=== PATIENT | male | born 1955 | race Caucasian/White ===

== ENCOUNTER 2016-05-07 21:31 | Emergency (ER) | payer BC ==
[2016-05-07 21:46] VITALS: BP 124/98
--- NOTE | 2016-05-07 22:11 | UC ---
Lower Extremity/Ankle HPI - HPI Summary HPI Summary: 3 weeks of foot and heel pain tonight stepped wrong at work and the pain increased--- - History of Current Complaint Chief Complaint: UCLowerExtremity Stated Complaint: FOOT PAIN Time Seen by Provider: 05/07/16 21:53 Hx Obtained From: Patient Onset/Duration: Gradual Onset, Lasting Weeks - 3, Still Present Severity Initially: Moderate Severity Currently: Moderate Pain Intensity: 5 Pain Scale Used: 0-10 Numeric Aggravating Factor(s): Standing, Ambulation Alleviating Factor(s): Rest, Elevation Able to Bear Weight: Yes Related History: Other - 3 weeks of pain - Allergies/Home Medications Allergies/Adverse Reactions: Allergies Allergy/AdvReac Type Severity Reaction Status Date / Time Chocolate Allergy Rash Verified 05/07/16 21:46 Home Medications: Home Medications NK [No Home Medications Reported] 05/07/16 [History Confirmed 05/07/16] PMH/Surg Hx/FS Hx/Imm Hx Previously Healthy: Yes - Surgical History Surgical History: Yes Surgery Procedure, Year, and Place: right lower leg. Eyes - Family History Known Family History: Positive: None Family History: no reported cardiovascular issues in family lineage - Social History Occupation: Employed Full-time Lives: With Family Alcohol Use: Rare Substance Use Type: None Smoking Status (MU): Never Smoked Tobacco Review of Systems Constitutional: Negative Skin: Negative Eyes: Negative ENT: Negative Respiratory: Negative Cardiovascular: Negative Gastrointestinal: Negative Genitourinary: Negative Motor: Negative Neurovascular: Negative Musculoskeletal: Arthralgia - bottom center of foot heel to mid foot Neurological: Negative Psychological: Negative All Other Systems Reviewed And Are Negative: Yes Physical Exam Triage Information Reviewed: Yes Appearance: Well-Appearing, No Pain Distress, Obese Vital Signs: Initial Vital Signs Temp 97.8 F 05/07/16 21:41 Pulse 72 05/07/16 21:41 Resp 18 05/07/16 21:41 BP 124/98 05/07/16 21:41 Pulse Ox 96 05/07/16 21:41 Vital Signs Reviewed: Yes Eye Exam: Normal Eyes: Positive: Conjunctiva Clear ENT Exam: Normal ENT: Positive: Normal ENT inspection, Hearing grossly normal. Negative: Trismus , Muffled/hoarse voice Neck exam: Normal Neck: Positive: Supple, Nontender Respiratory Exam: Normal Respiratory: Positive: No respiratory distress, No accessory muscle use Cardiovascular Exam: Normal Cardiovascular: Positive: RRR, Pulses Normal, Brisk Capillary Refill Musculoskeletal Exam: Normal Musculoskeletal: Positive: Strength Intact, ROM Intact, No Edema Neurological Exam: Normal Neurological: Positive: Alert, Muscle Tone Normal Psychological Exam: Normal Skin Exam: Normal Lower Extremity Course/Dx - Course Course Of Treatment: cam boot, rest elevated, ibuprofen plantar exercises, follow with podiatry - Differential Dx/Diagnosis Differential Diagnosis/HQI/PQRI: Contusion, Fracture (Open), Sprain, Strain Provider Diagnoses: Plantar Fasciitis right foot Discharge - Discharge Plan Condition: Stable Disposition: HOME Patient Education Materials: Ibuprofen (By mouth), Plantar Fasciitis Exercises (GEN), Plantar Fasciitis (ED) Forms: *Work Release Referrals: Geovanny Coulter DPM [Doctor of Podiatric Medicine] - 1 Week Katharina Lopez DPM [Doctor of Podiatric Medicine] - 1 Week Pj Sorensen DPM [Doctor of Podiatric Medicine] - 1 Week
== END 2016-05-07 22:13 | disposition home or self-care (01) ==
LOC: UCEAST 21:31
DX: M72.2 Plantar fascial fibromatosis (principal)
CPT/HCPCS: 99211; G0463

== ENCOUNTER 2016-12-31 10:50 | Emergency (ER) | payer BC ==
--- NOTE | 2016-12-31 10:56 | UC ---
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 Was doing floor work on his knees about 2 weeks ago and ever since his left knee has been painful and mildly swollen. No specific injury or previous injury. Has been taking Tylenol for pain with minimal relief. Is currently weight bearing, but with pain. - History of Current Complaint Chief Complaint: UCLowerExtremity Stated Complaint: SWOLLEN PAINFUL KNEE Time Seen by Provider: 12/31/16 10:55 Hx Obtained From: Patient Onset/Duration: Gradual Onset Severity Initially: Mild Severity Currently: Moderate Pain Intensity: 5 Pain Scale Used: 0-10 Numeric Character: Sharp, Dull, Aching Aggravating Factor(s): Movement, Weight Bearing Alleviating Factor(s): Rest, OTC Meds Associated Signs And Symptoms: Positive: Swelling. Negative: Redness, Bruising , Fever Able to Bear Weight: Yes - Allergies/Home Medications Allergies/Adverse Reactions: Allergies Allergy/AdvReac Type Severity Reaction Status Date / Time Chocolate Allergy Rash Verified 05/07/16 21:46 PMH/Surg Hx/FS Hx/Imm Hx Previously Healthy: Yes - Surgical History Surgical History: Yes Surgery Procedure, Year, and Place: right lower leg. Eyes - Family History Known Family History: Positive: None Family History: no reported cardiovascular issues in family lineage - Social History Occupation: Employed Full-time Lives: With Family Alcohol Use: Rare Substance Use Type: None Smoking Status (MU): Never Smoked Tobacco Review of Systems Constitutional: Negative Skin: Negative Respiratory: Negative Cardiovascular: Negative Motor: Negative Musculoskeletal: Edema - Left knee, Other: - Pain Left knee Is Patient Immunocompromised?: No All Other Systems Reviewed And Are Negative: Yes Physical Exam Triage Information Reviewed: Yes Appearance: Well-Appearing, Obese Vital Signs Reviewed: Yes Respiratory: Positive: Chest non-tender, Lungs clear, Normal breath sounds, No respiratory distress Cardiovascular: Positive: RRR, No Murmur, Pulses Normal Musculoskeletal: Positive: Strength Intact, ROM Intact, Edema @ - Mild edema about the Left knee., Other: - TTP over medial joint line. Positive Roselyn LT knee. Negative cindy. Negative A/P drawer. No increased laxity. Neurological: Positive: Alert, Muscle Tone Normal Psychological: Positive: Age Appropriate Behavior Skin: Negative: rashes, significant lesion(s) Knee Pain Course/Dx - Course Course Of Treatment: Has been taking Tylenol for pain. Will add Naproxen 250mg q6-8 prn, knee brace, and f/u with Ortho. Suspect meniscus injury. Off work for 2 days. - Differential Dx/Diagnosis Differential Diagnosis/HQI/PQRI: Bursitis, Internal Derangement Of Knee, Patellofemoral Syndrome, Sprain, Strain Provider Diagnoses: Internal Derangement of the left knee Discharge - Discharge Plan Condition: Stable Disposition: HOME Prescriptions: Elastic Bandages & Supports [Knee Brace/Cushion/l/Xl/l] 1 mis XX DAILY #1 mis Naproxen TAB* [Naprosyn 250 mg TAB*] 250 mg PO Q8H PRN #30 tab PRN Reason: Pain Patient Education Materials: Knee Pain (ED) Forms: *Work Release Referrals: David HORTON,Jb Monteiro [Primary Care Provider] - Raymond Hassan MD [Medical Doctor] - As Soon As Possible Additional Instructions: 1) Naproxen for pain 2) Call Orthopedics (Dr. Hassan) to schedule a follow up for their next available appointment. 3) Knee Brace wear at work and throughout the day. 4) Rest, Ice, Brace, and Elevate your knee. If you develop a fever, SOB, chest pain, new or worsening symptoms - please call our office or go to ED
[2016-12-31 11:00] VITALS: BP 145/85
--- NOTE | 2016-12-31 12:05 | RAD ---
INDICATION: Left knee injury. TECHNIQUE: 4 views of the left knee were obtained. FINDINGS: The bones are in normal alignment. No joint effusion or fracture is seen. There is mild osteoarthritic changes in the medial and patellofemoral compartments. IMPRESSION: NO EVIDENCE FOR FRACTURE.
== END 2016-12-31 12:12 | disposition home or self-care (01) ==
LOC: UCEAST 10:50
DX: M23.92 Unspecified internal derangement of left knee (principal)
CPT/HCPCS: 99212; G0463